=== PATIENT | male | born 1950 | race Caucasian/White ===

== ENCOUNTER 2022-09-02 09:19 | Outpatient (CLI) | payer OTHER | END 2022-09-02 09:20 | disposition home or self-care (01) | LOC: CSHMRI 09:19 | PROVIDERS: ATTEND Urology | DX: C61 Malignant neoplasm of prostate (principal); M87.9 Osteonecrosis, unspecified | CPT/HCPCS: 72197; 82565 ==

== ENCOUNTER 2024-06-07 14:08 | Outpatient (CLI) | payer OTHER, MEDICAID | END 2024-06-07 14:09 | disposition home or self-care (01) | LOC: CSHRAD 14:08 | PROVIDERS: ATTEND Family Medicine Sports Medicine | DX: M25.532 Pain in left wrist (principal); M19.032 Primary osteoarthritis, left wrist ==